=== PATIENT | male | born 1960 | race Caucasian/White ===

== ENCOUNTER 2018-01-15 00:21 | Inpatient (IN) | payer OTHER ==
--- NOTE | 2018-01-15 00:56 | ED ---
HPI Cardiac - HPI Summary HPI Summary: This patient is a 57 year old M transferred from [facility] with a chief complaint of intermittent CP since this evening at 20:30. There is a noted NSTEMI. Pt states his pain is resolved in the ED. Patient denies SOB, dizziness, nausea, or vomiting. The patient was watching the news when he had the CP. He had been hunting earlier in the day. Pt states that his pain was relieved after taking one metoprolol at home. PMHX muscle spasms in his back. No PMHx angina, [place]. SHX tobacco use. - History of Current Complaint Chief Complaint: EDChestPainROMI Stated Complaint: CHEST PAIN Hx Obtained From: Patient Onset/Duration: Started Hours Ago - 20:30 Timing: Intermittent Initial Severity: Severe Current Severity: None Pain Intensity: 0 Associated Signs and Symptoms: Negative: Dizziness, Shortness of Breath, Nausea , Vomiting - Allergy/Home Medications Allergies/Adverse Reactions: Allergies Allergy/AdvReac Type Severity Reaction Status Date / Time No Known Allergies Allergy Verified 01/15/18 00:32 PMH/Surg Hx/FS Hx/Imm Hx Cardiovascular History: Denies: Hx Angina, Hx Myocardial Infarction Musculoskeletal History: Reports: Other Musculoskeletal History - muscle spasms in back EENT History: Denies: Hx Deafness Infectious Disease History: No Infectious Disease History: Denies: Traveled Outside the [place] in Last 30 Days - Family History Known Family History: Positive: Cardiac Disease - Social History Alcohol Use: None Substance Use Type: Reports: None Hx Tobacco Use: Yes Smoking Status (MU): Light Every Day Tobacco Smoker Review of Systems Negative: Other - dizzy Positive: Chest Pain - resolved Negative: Shortness Of Breath Negative: Vomiting, Nausea All Other Systems Reviewed And Are Negative: Yes Physical Exam - Summary Physical Exam Summary: Appearance: Well-appearing, Well-nourished, lying in bed comfortably Skin: Warm, dry, no obvious rash Eyes: sclera anicteric, no conjunctival pallor ENT: mucous membranes moist, pharynx appears normal Neck: Supple, nontender Respiratory: Clear to auscultation, no signs of respiratory distress Cardiovascular: Normal S1, S2. No murmurs. Normal distal pulses in tibial and radial bilaterally. Abdomen: Soft, nontender, normal active bowel sounds present Musculoskeletal: Normal, Strength/ROM Intact Neurological: A&Ox3, awake and alert, mentation is normal, speech is fluent and appropriate Psychiatric: affect is normal, does not appear anxious or depressed Triage Information Reviewed: Yes Vital Signs On Initial Exam: Initial Vitals Temp Pulse Resp BP Pulse Ox 98.8 F 62 15 137/80 96 01/15/18 00:26 01/15/18 00:26 01/15/18 00:26 01/15/18 00:26 01/15/18 00:26 Vital Signs Reviewed: Yes Diagnostics - Vital Signs Vital Signs Temp Pulse Resp BP Pulse Ox 01/15/18 00:26 98.8 F 62 15 137/80 96 - Laboratory Result Diagrams: 01/15/18 01:11 01/15/18 03:09 Lab Statement: Any lab studies that have been ordered have been reviewed, and results considered in the medical decision making process. - EKG 00:59 Cardiac Rate: Bradycardia - 55 bpm EKG Rhythm: Sinus Bradycardia Summary of EKG Findings: Sinus bradycardia at 51 BPM, P waves, QRS complex, and T waves are within normal limits, T waves and intervals are normal, no ischemic changes. Disposition - Course Course Of Treatment: This patient is a 57 year old M transferred from [facility] with a chief complaint of intermittent CP since this evening at 20:30. There is a noted NSTEMI. Pt states his pain is resolved in the ED. Patient denies SOB, dizziness, nausea, or vomiting. An EKG reveals Sinus bradycardia at 51 BPM, P waves, QRS complex, and T waves are within normal limits, T waves and intervals are normal, no ischemic changes. This is a normal EKG. ED physician has reviewed this radiology report. In the ED course the patient was given Heparin. We discussed patient care with Dr. Holley and they recommended admission. Patient will be admitted to [facility]. The patient is agreeable with this plan. - Diagnoses Provider Diagnoses: ACS (acute coronary syndrome) - Physician Notifications Discussed Care Of Patient With: Danae Holley Time Discussed With Above Provider: 01:01 Instructed by Provider To: Admit As Inpatient Discharge - Sign-Out/Discharge Documenting (check all that apply): Patient Departure - admit - Discharge Plan Condition: Stable Disposition: ADMITTED TO [facility] - Billing Disposition and Condition Condition: STABLE Disposition: Admitted to [facility] - Attestation Statements Document Initiated by Scribe: Yes Documenting Scribe: Kevin Guajardo Provider For Whom Scribe is Documenting (Include Credential): Mick Pineda MD Scribe Attestation: I, Kevin Guajardo, scribed for Mick Pineda MD on 01/15/18 at 0352. Scribe Documentation Reviewed: Yes Provider Attestation: The documentation as recorded by the scribe, Kevin Guajardo accurately reflects the service I personally performed and the decisions made by me, Mick Pineda MD Status of Scribe Document: Viewed
[2018-01-15] MEDS ORDERED: Heparin DRIP 25,000 UNITS(*) 25,000 UNITS/500 ML BAG IV SCH ×6 (01:00→03:00)
[2018-01-15] MEDS ORDERED: Heparin VIAL(*) 5000 UNITS/ML VIAL (FIVE THOUSAND) IV PRN (01:36)
[2018-01-15] MEDS ORDERED: Al Hydrox/Mg Hydrox/Simet LIQ* 30 ML UDC PO PRN (02:13)
[2018-01-15] MEDS ORDERED: Ondansetron INJ* 2 MG/ML VIAL IV PRN (02:13)
[2018-01-15] MEDS ORDERED: Acetaminophen TAB* 325 MG PO PRN (02:13)
[2018-01-15] MEDS ORDERED: Docusate CAP* 100 MG PO PRN (02:13)
[2018-01-15] MEDS ORDERED: Senna TAB PO PRN (02:13)
[2018-01-15] MEDS ORDERED: Diazepam TAB(*) 5 MG PO PRN ×2 (02:18→12:19)
[2018-01-15] MEDS ORDERED: Heparin DRIP 25,000 UNITS(*) 25,000 UNITS/500 ML BAG IV ONE ×2 (03:00)
--- NOTE | 2018-01-15 03:02 | PN ---
Progress Note - Progress Note Date of Service: 01/15/18 Note: HCP is Brendon Kumar his friend
[2018-01-15 03:08] LABS: ABS Basophils 0.1 10^3/ul (0-0.2); ABS Eosinophils 0.4 10^3/ul (0-0.6); ABS Lymphocytes 2.3 10^3/ul (1.0-4.8); ABS Monocytes 0.4 10^3/ul (0-0.8); ABS Neutrophils 5.5 10^3/ul (1.5-7.7); ABS Nucleated RBC 0 10^3/ul; Eosinophil % 4.5 %; Hematocrit 47 % (42-52); Hemoglobin 16.2 g/dl (14.0-18.0); Lymphocyte % 26.5 %; Mean Corpuscular HGB Conc 35 g/dl (31-36); Mean Corpuscular Hemoglobin 30 pg (27-31); Mean Corpuscular Volume 86 fL (80-94); Nucleated Red Blood Cells % 0; Platelet Count 299 10^3/ul (150-450); Red Blood Count 5.44 10^6/ul (4.00-5.40); Red Cell Distribution Width 14 % (10.5-15); White Blood Count 8.7 10^3/ul (3.5-10.8)
[2018-01-15] MEDS: oxyCODONE/Acetamin 5/325 MG* TAB PO PRN ×3 (04:06→20:46)
--- NOTE | 2018-01-15 08:49 | HP ---
CC: Darrius Rodriguez DO * HISTORY AND PHYSICAL: DATE OF ADMISSION: 01/15/18 TIME OF EVALUATION: 0200 PRIMARY CARE PHYSICIAN: Darrius Rodriguez DO CHIEF COMPLAINT: Chest pain. HISTORY OF PRESENT ILLNESS: This is a 57-year-old male with past medical history of tobacco use, rapid cardiac rhythm, presumed to be atrial fibrillation , who presented to the emergency room from [place] [facility] after found to have an elevated troponin. The patient states he was out hunting this morning and this evening around 8:30, he was on a couch when he developed substernal chest pain and shoulder pain. He initially thought it was a spasm and related to his back as he has a lot of back pain. He was out hunting earlier, so he took a Percocet with no improvement and he also noted his heart was racing. He took a metoprolol dose, which slowed it down, but thought he should go to the emergency room. By the time, he showed up to the emergency room, his chest pain and heart racing had resolved. He had no associated shortness of breath. No diaphoresis. No nausea. He is no longer having any chest pain. He states he was having issues with his heart racing about 8 months ago. He thinks it was atrial fibrillation. They tried to put him on metoprolol, but he was having issues with a low heart rate, so his doctor told him to only take it as needed when he had palpitations and he has not needed it since that episode and at that time, he was drinking 20 pots of coffee a day and 24 pack of soda. He cut back significantly but over gi, he increased his caffeine intake and is now back up to about 15 pots of coffee and 24 cans of soda per day. He states he just had a stress test 3 weeks ago done at [place] and he was told it was fine and his pull out operator, who he cannot recall, increased his simvastatin to 80 mg. The patient denied any fevers, chills. No URI symptoms. He has had issues with worsening back pain. Otherwise, review of systems is negative. In the emergency room, the patient had labs, imaging, and was referred to the hospitalist service for further evaluation. PAST MEDICAL HISTORY: 1. History of rapid rhythm, presumed to be atrial fibrillation. 2. Tobacco use. 3. Hyperlipidemia. 4. Back pain. 5. Arthritis. PAST SURGICAL HISTORY: Appendectomy. MEDICATIONS: 1. Percocet 5/325 every 4 to 6 hours as needed. 2. Diazepam 5 mg t.i.d. p.r.n. back spasm. 3. Simvastatin 80 mg p.o. daily. 4. Metoprolol succinate 25 mg as needed for rapid heart rate. 5. Ibuprofen as needed. ALLERGIES: No known drug allergies. FAMILY HISTORY: Mother is alive at age 86. Father at age 65 from an [facility]. SOCIAL HISTORY: The patient is a retired [employer]. He smokes a half a pack per day for the past 40 years. No alcohol or illicit drug use. Code status is full code. REVIEW OF SYSTEMS: A 14-point review of systems as mentioned in the HPI, otherwise negative. PHYSICAL EXAMINATION GENERAL: In no acute distress, resting comfortably. VITAL SIGNS: Temp 98.8, pulse 61, respiratory rate 17, oxygen saturation 97% on room air, blood pressure 150/94. HEENT: Head: Normocephalic. Pupils are equal and reactive. Oropharynx: Mucous membranes are moist. NECK: Supple. No lymphadenopathy. RESPIRATORY: Diminished breath sounds. No wheezing, rhonchi, or rales. CARDIAC: Regular rate and rhythm. Soft systolic murmur heard throughout. ABDOMEN: Soft, nontender, nondistended. EXTREMITIES: He does have lower extremity and upper extremity clubbing. No cyanosis or edema. +1 DPs. NEUROLOGICAL: Alert and oriented x3. No gross focal neurologic deficits. DIAGNOSTIC STUDIES/LAB DATA: Troponin is 2.4; from [place], it was 0.14. White count 7.5, hemoglobin 16.8, hematocrit 47, platelets 289. Sodium 139, potassium 3.5, chloride 101, bicarb 27, BUN 11, creatinine 0.9. EKG shows sinus bradycardia with a rate of 55. ASSESSMENT AND PLAN: This is a 57-year-old male with past medical history of significant caffeine use, tobacco use, who presents to the emergency room with chest pain, found to have an elevated troponin. Chest pain. Assessment: The patient with a rise in troponin. He is chest pain-free currently. I suspect this is demand ischemia in the setting of having a bout of rapid atrial fibrillation, presumably earlier this evening, as he did just have a stress test 3 weeks ago that was, according to the patient, unremarkable. However due to the significance of the rise of troponin it could also be an NSTEMI. Plan: We will keep him n.p.o. for now in case Cardiology is recommending further workup. We will order records to get the stress test. We will order an echocardiogram. I will contact Cardiology in the morning for further consultation. We will continue him on a baby aspirin, heparin drip, trend his troponins, check his lipid panel. We will hold off on beta-kelly as he states he does not tolerate this and due to developing significant bradycardia, we discussed likely the culprit is the increasing caffeine intake that has triggered his rapid atrial fibrillation. We will also repeat his BMP and magnesium. CHRONIC MEDICAL PROBLEMS: 1. Chronic back pain. Continue his Percocet and diazepam. 2. Hyperlipidemia. Continue his simvastatin. FEN: As mentioned, we will keep him n.p.o. for now. DVT prophylaxis: The patient scores moderate risk. He is on heparin drip. Code status: Full code. TIME SPENT: Greater than 40 minutes were spent doing the history and physical, more than half time was spent in direct patient contact. [id number]/[id number] #: [id number] KENNETH
--- NOTE | 2018-01-15 09:32 | ECHO ---
Patient: BAKARI DREW [facility] Rec#: [id number] : 1960 Date: 01/15/2018 Age: 57y Height: 170 cm / 66.9 in Weight: 76.7 kg / 169.0 lbs Sex: M BSA: 1.9 Room#: [facility] Admit Date#: 01/14/2018 Type: Inpatient Referring: Danae Holley Reading: Erwin Romeo DO Medical Doctor Md: Ammy Izquierdo RN RDCS Transthoracic Echocardiogram Indication: Chest pain BP: 128/78 HR: 52 Rhythm: Bradycardia Findings History: Smoker Technical Comments: The study quality is fair. Left Ventricle: The left ventricular chamber size is normal. There is a prominent septal knuckle. There is a focal wall motion abnormality present. There is moderately decreased left ventricular systolic function. The estimated ejection fraction is 35-40%. The assessment of diastolic function is non-diagnostic. The basal anteroseptal, mid inferior, mid inferoseptal, and apical lateral wall segments are hypokinetic (score 2). The mid anteroseptal, apical septal, apical anterior, and apical inferior wall segments are akinetic (score 3). Overall wallmotion score index is 1.92 Left Atrium: The left atrium is mildly dilated. Right Ventricle: The right ventricular chamber size and systolic function are within normal limits. Right Atrium: The right atrial cavity size is normal. Aortic Valve: The aortic valve is trileaflet. The aortic valve leaflets are moderately thickened. Mild aortic leaflet calcification is visualized., mild to moderate Systolic excursion of the aortic valve cusps is reduced.mildly There is mild aortic regurgitation. There is mild aortic stenosis. Mitral Valve: The mitral valve leaflets are mildly thickened. There is trace to mild mitral regurgitation. There is no evidence of mitral stenosis. Tricuspid Valve: The tricuspid valve leaflets are normal. There is mild tricuspid regurgitation. No pulmonary hypertension is noted. There is no tricuspid stenosis. Pulmonic Valve: The pulmonic valve structure is not well visualized. There is trace to mild pulmonic regurgitation. There is no pulmonic stenosis. Pericardium: There is no significant pericardial effusion. Aorta: The ascending aorta is not well visualized. There is no dilatation of the aortic arch. There is no dilation of the aortic root. Pulmonary Artery: The main pulmonary artery is not well visualized. Venous: The inferior vena cava appears normal in size. There is a greater than 50% respiratory change in the inferior vena cava dimension. Conclusions The left ventricular chamber size is normal. There is a prominent septal knuckle. There is moderately decreased left ventricular systolic function. The estimated ejection fraction is 35-40% with a mid LAD territory wall motion abnormality The left atrium is mildly dilated. The right ventricular chamber size and systolic function are within normal limits. There is mild aortic stenosis. None prior for comparison at time of interpretation Measurements Name Value Normal Range RVDdMajor (2D) 3.3 cm (2.2 - 4.4) RAd ISD 4CH 4.8 cm (3.4 - 4.9) RA (A4C)W 4 cm (2.9 - 4.6) IVSd (2D) 1.2 cm (0.6 - 1) LVPWd (2D) 1 cm (0.6 - 1) LVIDd (2D) 4.4 cm (3.6 - 5.4) LVIDs (2D) 3.1 cm - LV FS (2D) 30 % (25 - 45) Aortic Annulus 2 cm (1.4 - 2.6) Ao root diameter (2D) 3.2 cm (2.1 - 3.5) Aortic arch 2.8 cm (1.8 - 3.4) LA dimension (AP) 2D 2.7 cm (2.3 - 3.8) LAd ISD 4CH 5 cm (2.9 - 5.3) LA ISD 4CH W 4 cm (2.5 - 4.5) Name Value Normal Range LA ESV SP 4CH (A/L) 71 ml - LA ESV SP 2CH (A/L) 59 ml - LA ESV BP (A/L) 69 ml - LA ESV BP (A/L) index 37.4 ml/m2 - LA ESV SP 4CH (MOD) 68 ml - LA ESV SP 2CH (MOD) 56 ml - Name Value Normal Range MV E-wave Vmax 0.63 m/sec - MV deceleration time 222 msec - MV A-wave Vmax 0.55 m/sec - MV E:A ratio 1.1 ratio - LV septal e' Vmax 0.08 m/sec - LV lateral e' Vmax 0.09 m/sec - LV E:e' septal ratio 7.9 ratio - LV E:e' lateral ratio 7 ratio - Name Value Normal Range AV Vmax 2.3 m/sec - AV VTI 55.4 cm - AV peak gradient 20.6 mmHg - AV mean gradient 12 mmHg - LVOT diameter 2.1 cm - LVOT Vmax 0.84 m/sec - LVOT VTI 20.8 cm - LVOT peak gradient 3 mmHg - LVOT mean gradient 2 mmHg - DOI (VTI) 0.38 ratio - DOI (Vmax) 0.37 ratio - GREGORIO Vmax 0.88 m/sec - Name Value Normal Range TR Vmax 2.7 m/sec - TR peak gradient 29 mmHg - RAP 3 mmHg - RVSP 32 mmHg - IVC diameter 1.7 cm - Name Value Normal Range PV Vmax 0.67 m/sec - Wallmotion BAS Hypokinetic BA Not Seen BAL Normal ISAEL Normal BI Not Seen BIS Normal MAS Akinetic MA Not Seen MAL Normal MIL Normal UT Hypokinetic MIS Hypokinetic Akinetic AA Akinetic AL Hypokinetic AI Akinetic APEX Akinetic
[2018-01-15] MEDS: Aspirin 81 mg CHEW TAB* 81 MG TAB.CHEW PO SCH (09:40)
[2018-01-15] MEDS ORDERED: Ticagrelor* 90 MG TAB PO ONE (10:13)
--- NOTE | 2018-01-15 10:32 | CONSULT ---
Subjective Date of Service: 01/15/18 Interval History: Admission Date: 01/15/18 Consult date 01/15/2018 PCP Darrius Rodriguez DO Grinding Supervisor: Dr. Jacobson at [place] (had several prior cardiologists to this that left practice) CHIEF COMPLAINT: Chest pain Reason for consult: NSTEMI HISTORY OF PRESENT ILLNESS: Jass Cunningham is a 57 year old man with a history of palpitations/arrhythmia (? atrial fibrillation) with PRN beta-kelly use. He was told this is related to extremely high caffeine intake. He was told at some point in the past he would be a pacemaker candidate although the indication for this is not clear. He tells me he had a normal stress test a year ago. He recently had his simvastatin dose increased from 40 to 80 mg po daily. Last evening he had about an hour of substernal chest squeezing that radiated to shoulders and upper back associated with palpitations. He tried PRN medication percocet and metoprolol but it did not relieve his discomfort. By the time he went to [place] ER his pain suddenly stopped and has remained without pain. He ruled in for ACS with abnormal troponin levels and a segmental WMA on echocardiogram. He is currently pain free. He denies any bleeding history, blood transfusions , allergies or kidney problems. His fiance takes plavix terminal computer operator. Of note, had been drinking 20 pots of coffee a day and 24 pack of soda. He reduced this because of palpitations but recently increased his caffeine intake and is now back up to about 15 pots of coffee and 24 cans of soda per day. PAST MEDICAL HISTORY: 1. Palpitations, ? atrial fibrillation 2. Tobacco use, ongoing 3. Hyperlipidemia. 4. Back pain. 5. Arthritis. PAST SURGICAL HISTORY: Appendectomy. ALLERGIES: No known drug allergies. FAMILY HISTORY: Mother is alive at age 86. Father at age 65 from an ID. SOCIAL HISTORY: The patient is a retired [employer]. He smokes a half a pack per day for the past 40 years. No alcohol or illicit drug use. Code status is full code. , 2 children. Is engaged. Home medications 1. Percocet 5/325 every 4 to 6 hours as needed. 2. Diazepam 5 mg t.i.d. p.r.n. back spasm. 3. Simvastatin 80 mg p.o. daily. 4. Metoprolol succinate 25 mg as needed for rapid heart rate. 5. Ibuprofen as needed. Medications Active Medications: Acetaminophen (Tylenol Tab*) 650 mg PO Q4H PRN PRN Reason: FEVER/PAIN Al Hydrox/Mg Hydrox/Simethicone (Maalox Plus*) 30 ml PO Q6H PRN PRN Reason: INDIGESTION Aspirin (Aspirin 81 Mg Chew Tab*) 81 mg PO DAILY [facility] Last Admin: 01/15/18 09:40 Dose: 81 mg Atorvastatin Calcium (Lipitor*) 80 mg PO 1700 [facility] Diazepam (Valium Tab(*)) 5 mg PO Q8H PRN PRN Reason: spasm Docusate Sodium (Colace Cap*) 100 mg PO BID PRN PRN Reason: CONSTIPATION Heparin Sodium (Porcine) (Heparin Vial(*)) 0 units IV .BOLUSES PRN PRN Reason: HEPARIN DRIP BOLUSES Heparin Sodium/Dextrose (Heparin Drip 25,000 Units(*)) 25,000 units in 500 mls @ 0 mls/hr IV PER RATE [facility]; Protocol Last Admin: 01/15/18 04:08 Dose: 18 mls/hr Ondansetron HCl (Zofran Inj*) 4 mg IV Q4H PRN PRN Reason: NAUSEA/VOMITING Oxycodone/Acetaminophen (Percocet 5/325 Tab*) 1 tab PO Q4H PRN PRN Reason: Pain Last Admin: 01/15/18 04:06 Dose: 1 tab Senna (Senokot Tab*) 1 tab PO BID PRN PRN Reason: CONSTIPATION Ticagrelor (Brilinta*) 180 mg PO ONCE ONE Stop: 01/15/18 10:14 Ticagrelor (Brilinta*) 90 mg PO BID [facility] Review of Systems - Measurements Intake and Output: Intake and Output Last 24 Hours 01/13/18 01/14/18 01/15/18 01/16/18 06:59 06:59 06:59 06:59 Intake Total 105 0 Balance 105 0 Weight 163 lb 6.4 oz Intake: Heparin 105 Oral 0 0 Other: # Bowel Movements 0 # Voids 0 - Review of Systems Constitutional Symptoms: Negative: Weight Gain, Weight Loss, Fatigue, Fever Dermatology: Negative: Rash, Skin Lesions HEENT: Negative: Change in Hearing, Vertigo Eyes: Negative: Change in Vision, Double Vision Thyroid: Positive: Palpitations Negative: Cold Intolerance, Heat Intolerance, Weight Loss, Weight Gain Pulmonary: Negative: Sputum, Hemoptysis, Shortness of Breath, Exercise Intolerance, Home Oxygen Cardiology: Positive: Chest Pain, Palpitations Negative: Shortness of Breath, Swelling of Ankles, Peripheral Vascular Dis, Edema, Faintness, Syncope, Claudication, Paroxysmal Nocturnal Dyspnea, Orthopnea Gastroenterology: Negative: Nausea, Vomiting, Anorexia, Blood in Stools, Change in Bowel Habits , Haematemesis, Melena Genital - Urinary: Negative: Dysuria, Hematuria Musculoskeletal: Negative: Joint Pain, Joint Stiffness, Osteoporosis, Low Back Pain Endocrinology: Negative: Obesity, Diabetes, Hyperglycemia, Hypoglycemia, Polydipsia, Polyuria Hematologic/Lymphatic: Negative: Anemia, Hx Leukemia, Hx Lymphoma, Use of Anticoagulant, Use of Antiplatelet Drugs Neurology: Negative: Headaches, Migraines, Diplopia, Dizziness, Hx of Stroke\TIA, Hx Seizures Psychiatry: Negative: Depression, Anxiety, Sexual Dysfunction, Weight Change, Unusual Anxiety, Suicidal Ideation Allergic/Immunologic: Negative: Hx Anaphylaxis, Hx Angioedema, Hx HIV, Immunocompromise Review of Systems Statement: All other review of systems negative, unless stated above. Objective Vital Signs: Temp Pulse Resp BP Pulse Ox 97.7 F 51 18 128/78 97 01/15/18 07:57 01/15/18 07:57 01/15/18 08:00 01/15/18 07:57 01/15/18 07:57 Oxygen Devices in Use Now: None Appearance: nad, pleasant Ears/Nose/Mouth/Throat: Clear Oropharnyx, Mucous Membranes Moist Neck: NL Appearance and Movements; NL JVP Respiratory: Symmetrical Chest Expansion and Respiratory Effort, Clear to Auscultation Cardiovascular: RRR, - - soft systolic murmur, no edema Abdominal: NL Sounds; No Tenderness; No Distention Extremities: No Edema, No Clubbing, Cyanosis Skin: No Rash or Ulcers Neurological: Alert and Oriented x 3 Laboratory Results: 01/15/18 01:11 01/15/18 03:09 APTT 61.7 seconds (26.0-36.3) H 01/15/18 05:19 B-Natriuretic Peptide 46 pg/mL (<=100) 01/15/18 01:11 Triglycerides 173 mg/dL 01/15/18 05:19 Cholesterol 259 mg/dL 01/15/18 05:19 LDL Cholesterol 183 mg/dL 01/15/18 05:19 HDL Cholesterol 41.5 mg/dL 01/15/18 05:19 TSH 1.11 mcIU/mL (0.34-5.60) 01/15/18 01:11 01/15/18 01/15/18 01/15/18 01:11 05:19 09:30 Troponin I 2.40 H* 4.55 H* 4.51 H* DIAGNOSTIC STUDIES/LAB DATA: [place] troponin 0.14. mg 2.2 cr 0.71 Diagnostic Imaging: Echo 01/15/2018: LVEF 35% with mid LAD territory WMA and mild EKG Data: EKG 01/15/2018: SB 55 bpm, non-specific st changes, repeat ekg grossly unchanged at 49 bpm Assessment/Plan In summary, Jass Cunningham is 57 year old woman with a history of intermittent palpitations (? atrial fibrillation) in part related to extremely high caffeine intake, tobacco use ongoing who presents with an acute ID, LVEF 35-40% with mid LAD territory WMA. - Agree with changing simvastatin to atorvastatin. Pending repeat LDL measurements as an outpatient, patient would be eligible for add-on zetia and/ or pcsk9 inhibitor - Will hold on beta-kelly for now given asymptomatic sinus bradycardia but likely start prior to discharge low dose toprol 12.5 mg po daily - Will start AceI soon - Continue aspirin 81 mg po daily - Continue heparin gtt - Give brillinta 180 mg po x 1 now then start 90 mg po bid (ordered) - Smoking cessation counseling given, patient expressed understanding further smoking will lead to increased risks of things including but not limited to . - Caffeine reduction counseled on At this point I am not sure if this is a type 1 ID vs. type 2 ID related to a primary arrhythmia. Regardless, cardiac catheterization with intent for revascularization is indicated and recommended. Risks, benefits and alternatives discussed and patient wishes to proceed. Discussed with Dr. Preciado. Thank you for allowing me to participate in the cardiovascular care of this patient. Please do not hesitate to contact me with questions or concerns.
[2018-01-15] MEDS ORDERED: diPHENhydraMINE PO* 25 MG PO PRN (12:19)
[2018-01-15] MEDS ORDERED: NS 0.9% 1000 ML* 1,000 ML IV SCH ×2 (12:30→16:45)
[2018-01-15] MEDS ORDERED: Heparin 2 UNITS/ML IVPREMIX* 3,000 ML IV ONE (14:03)
[2018-01-15] MEDS ORDERED: VERAPAMIL 2.5 MG/ML 2 ML VIAL ** 5 mg/2 ml ONE (14:03)
[2018-01-15] MEDS ORDERED: Heparin(*) 1000 UNIT/ML 10 ML VIAL CATH LAB IV ONE (14:03)
[2018-01-15] MEDS ORDERED: fentaNYL* 50 MCG/ML 2 ML VIAL (100 MCG VIAL) ONE (14:03)
[2018-01-15] MEDS ORDERED: Midazolam* 1 MG/ML 10 ML VIAL (10 MG) ONE (14:03)
[2018-01-15] MEDS ORDERED: Lidocaine 1% INJ* 10 MG/ML 30 ML SDV ONE (14:04)
[2018-01-15] MEDS ORDERED: Iohexol 350 (CONTRAST) 200 ML MDV IV ONE ×3 (14:04→15:50)
[2018-01-15] MEDS ORDERED: nitroGLYCERIN DRIP* 25,000 MCG/250 ML BTL ONE (14:04)
[2018-01-15] MEDS ORDERED: Nitroglycerin TAB 0.4 MG* 0.4 MG TAB SL PRN (16:31)
[2018-01-15] MEDS: Atorvastatin* 80 MG TAB PO SCH (17:02)
--- NOTE | 2018-01-15 17:35 | PN ---
Subjective Date of Service: 01/15/18 Interval History: Mr. Cunningham denies any complaint today. He denies chest pain or SOB. Objective Active Medications: Acetaminophen (Tylenol Tab*) 650 mg PO Q4H PRN PRN Reason: FEVER/PAIN Al Hydrox/Mg Hydrox/Simethicone (Maalox Plus*) 30 ml PO Q6H PRN PRN Reason: INDIGESTION Aspirin (Aspirin 81 Mg Chew Tab*) 81 mg PO DAILY [facility] Last Admin: 01/15/18 09:40 Dose: 81 mg Atorvastatin Calcium (Lipitor*) 80 mg PO 1700 [facility] Last Admin: 01/15/18 17:02 Dose: 80 mg Diazepam (Valium Tab(*)) 5 mg PO Q8H PRN PRN Reason: spasm Docusate Sodium (Colace Cap*) 100 mg PO BID PRN PRN Reason: CONSTIPATION Sodium Chloride (Ns 0.9% 1000 Ml*) 1,000 mls @ 100 mls/hr IV .per rate [facility] Stop: 01/16/18 06:00 Nitroglycerin (Nitroglycerin Tab 0.4 Mg*) 0.4 mg SL Q5M PRN PRN Reason: ANGINA Ondansetron HCl (Zofran Inj*) 4 mg IV Q4H PRN PRN Reason: NAUSEA/VOMITING Oxycodone/Acetaminophen (Percocet 5/325 Tab*) 1 tab PO Q4H PRN PRN Reason: Pain Last Admin: 01/15/18 17:02 Dose: 1 tab Senna (Senokot Tab*) 1 tab PO BID PRN PRN Reason: CONSTIPATION Ticagrelor (Brilinta*) 90 mg PO BID [facility] Vital Signs - 8 hr 01/15/18 01/15/18 01/15/18 14:09 16:30 16:31 Temperature Pulse Rate 53 48 Respiratory 20 19 13 Rate Blood Pressure 149/88 (mmHg) O2 Sat by Pulse 100 100 Oximetry 01/15/18 01/15/18 01/15/18 16:32 16:42 16:45 Temperature 97.5 F Pulse Rate 64 57 Respiratory 24 18 18 Rate Blood Pressure 149/88 157/95 (mmHg) O2 Sat by Pulse 99 100 Oximetry 01/15/18 01/15/18 01/15/18 16:57 17:00 17:01 Temperature Pulse Rate 63 53 Respiratory 15 18 24 Rate Blood Pressure 143/95 (mmHg) O2 Sat by Pulse 99 99 Oximetry 01/15/18 17:02 Temperature Pulse Rate Respiratory 16 Rate Blood Pressure (mmHg) O2 Sat by Pulse Oximetry Oxygen Devices in Use Now: None Appearance: male lying in bed in NAD Eyes: No Scleral Icterus Ears/Nose/Mouth/Throat: Mucous Membranes Moist Neck: Trachea Midline Respiratory: Symmetrical Chest Expansion and Respiratory Effort, Clear to Auscultation Cardiovascular: NL Sounds; No Murmurs; No JVD, No Edema Abdominal: NL Sounds; No Tenderness; No Distention Extremities: No Edema Skin: No Rash or Ulcers Neurological: Alert and Oriented x 3, NL Muscle Strength and Tone Nutrition: Taking PO's Result Diagrams: 01/15/18 01:11 01/15/18 03:09 Assess/Plan/Problems-Billing Assessment: Mr. Cunningham is a 57 yo male who was admitted on 01/14/18 with chest pain found to have NSTEMI, now s/p stent placement. - Patient Problems (1) NSTEMI (non-ST elevated myocardial infarction) Comment: - Trop peaked at 4.55 - Appreciate cards consult, now s/p cardiac cath with stent placement - Continue aspirin, atorvastatin, and brilinta (2) DVT prophylaxis Comment: - SCDs (3) Full code status Comment:
[2018-01-15] MEDS ORDERED: Metoprolol Tartrate IV* 1 MG/ML 5 ML VIAL ONE (17:53)
[2018-01-15] MEDS: Ticagrelor* 90 MG TAB PO SCH (20:47)
[2018-01-16 05:00] LABS: ABS Basophils 0.1 10^3/ul (0-0.2); ABS Eosinophils 0.4 10^3/ul (0-0.6); ABS Lymphocytes 2.1 10^3/ul (1.0-4.8); ABS Monocytes 0.9 10^3/ul (0-0.8); ABS Neutrophils 7.2 10^3/ul (1.5-7.7); ABS Nucleated RBC 0 10^3/ul; Eosinophil % 3.4 %; Hematocrit 44 % (42-52); Hemoglobin 15.2 g/dl (14.0-18.0); Lymphocyte % 19.5 %; Mean Corpuscular HGB Conc 34 g/dl (31-36); Mean Corpuscular Hemoglobin 30 pg (27-31); Mean Corpuscular Volume 86 fL (80-94); Mean Platelet Volume 8.2 fL (7.4-10.4); Nucleated Red Blood Cells % 0; Platelet Count 247 10^3/ul (150-450); Red Blood Count 5.14 10^6/ul (4.00-5.40); Red Cell Distribution Width 14 % (10.5-15); White Blood Count 10.7 10^3/ul (3.5-10.8)
[2018-01-16 05:18] LABS: EGFR Non-African American 115.8 (>60)
[2018-01-16] MEDS: Aspirin 81 mg CHEW TAB* 81 MG TAB.CHEW PO SCH (07:52)
[2018-01-16] MEDS: Ticagrelor* 90 MG TAB PO SCH ×2 (07:52→20:15)
[2018-01-16] MEDS ORDERED: Potassium Chlor TAB* 20 MEQ TAB.ER PO ONE (09:00)
[2018-01-16] MEDS: Nicotine PATCH 14 MG/24 HR* PATCH TRANSDERM SCH (09:17)
--- NOTE | 2018-01-16 09:22 | PN ---
Subjective Date of Service: 01/16/18 Interval History: f/u NSTEMI, PCI Patient feels well this AM, eating breakfast No wrist pain, chest pain, dyspnea or palpitations tele SB/SR, brief nsvt episodes Medications Active Medications: Acetaminophen (Tylenol Tab*) 650 mg PO Q4H PRN PRN Reason: FEVER/PAIN Al Hydrox/Mg Hydrox/Simethicone (Maalox Plus*) 30 ml PO Q6H PRN PRN Reason: INDIGESTION Aspirin (Aspirin 81 Mg Chew Tab*) 81 mg PO DAILY [facility] Last Admin: 01/16/18 07:52 Dose: 81 mg Atorvastatin Calcium (Lipitor*) 80 mg PO 1700 [facility] Last Admin: 01/15/18 17:02 Dose: 80 mg Diazepam (Valium Tab(*)) 5 mg PO Q8H PRN PRN Reason: spasm Docusate Sodium (Colace Cap*) 100 mg PO BID PRN PRN Reason: CONSTIPATION Losartan Potassium (Cozaar Tab*) 25 mg PO DAILY [facility] Metoprolol Succinate (Toprol Xl Tab*) 12.5 mg PO DAILY [facility] Nicotine (Nicotine Patch 14 Mg/24 Hr*) 1 patch TRANSDERM DAILY [facility] Nitroglycerin (Nitroglycerin Tab 0.4 Mg*) 0.4 mg SL Q5M PRN PRN Reason: ANGINA Ondansetron HCl (Zofran Inj*) 4 mg IV Q4H PRN PRN Reason: NAUSEA/VOMITING Oxycodone/Acetaminophen (Percocet 5/325 Tab*) 1 tab PO Q4H PRN PRN Reason: Pain Last Admin: 01/15/18 20:46 Dose: 1 tab Pharmacy Profile Note (Nicotine Patch Removal Note*) 1 note FOLLOW UP 2100 [facility] Senna (Senokot Tab*) 1 tab PO BID PRN PRN Reason: CONSTIPATION Ticagrelor (Brilinta*) 90 mg PO BID [facility] Last Admin: 01/16/18 07:52 Dose: 90 mg Objective Vital Signs: Temp Pulse Resp BP Pulse Ox 98 F 52 18 137/71 98 01/16/18 07:58 01/16/18 08:01 01/16/18 08:01 01/16/18 08:00 01/16/18 08:01 Oxygen Devices in Use Now: None Appearance: nad, pleasant Ears/Nose/Mouth/Throat: Clear Oropharnyx, Mucous Membranes Moist Neck: NL Appearance and Movements; NL JVP Respiratory: Symmetrical Chest Expansion and Respiratory Effort, Clear to Auscultation Cardiovascular: RRR, - - soft systolic murmur, no edema Abdominal: NL Sounds; No Tenderness; No Distention Extremities: No Edema, No Clubbing, Cyanosis Skin: No Rash or Ulcers Neurological: Alert and Oriented x 3 Laboratory Results: 01/16/18 04:46 01/16/18 04:46 APTT 37.0 seconds (26.0-36.3) H 01/15/18 11:47 B-Natriuretic Peptide 46 pg/mL (<=100) 01/15/18 01:11 Triglycerides 173 mg/dL 01/15/18 05:19 Cholesterol 259 mg/dL 01/15/18 05:19 LDL Cholesterol 183 mg/dL 01/15/18 05:19 HDL Cholesterol 41.5 mg/dL 01/15/18 05:19 TSH 1.11 mcIU/mL (0.34-5.60) 01/15/18 01:11 01/15/18 01/15/18 01/15/18 01:11 05:19 09:30 Troponin I 2.40 H* 4.55 H* 4.51 H* 01/15/18 01/15/18 11:47 16:53 Troponin I 4.40 H* 4.37 H* Diagnostic Imaging: Echo 01/15/2018: LVEF 35% with mid LAD territory WMA and mild EKG Data: EKG 01/15/2018: SB 55 bpm, non-specific st changes, repeat ekg grossly unchanged at 49 bpm EKG this AM shows SB 53 bpm, recent anterior wall [place] Assessment/Plan In summary, Jass Cunningham is 57 year old woman with a history of intermittent palpitations (? atrial fibrillation) in part related to extremely high caffeine intake, asymptomatic sinus bradycardia, tobacco use ongoing, dyslipidemia admitted with NSTEMI, LVEF 35-40% with mid LAD territory WMA s/p ALEX to mid LAD culprit lesion complicated by loss of septal branch, s/p ALEX to mid dominant Lcx has residual obstructive small vessel disease to be treated medically at this point - Continue atorvastatin 80 mg po daily. Pending repeat LDL measurements as an outpatient, patient would be eligible for add-on zetia and/or pcsk9 inhibitor - Start toprol 12.5 mg po daily (ordered), hold for pulse < 40 bpm - Continue aspirin 81 mg po daily - Continue brillinta 90 mg po bid - Start losartan 25 mg po daily (ordered). Needs a BMP in 1 week - Smoking cessation counseling given, continue nicotine patch - Caffeine reduction counseled on - If no further arrhythmias can be transferred to telemetry later today - Will arrange cardiology follow up Thank you for allowing me to participate in the cardiovascular care of this patient. Please do not hesitate to contact me with questions or concerns.
[2018-01-16] MEDS: Metoprolol Succinate XL TAB* 25 MG PO SCH (09:58)
[2018-01-16] MEDS: Losartan TAB* 25 MG PO SCH (09:59)
[2018-01-16] MEDS ORDERED: Nicotine Inhaler* 10 MG AMP INH PRN (12:52)
[2018-01-16] MEDS ORDERED: Mouth Piece, Nicotine* 1 EACH CARTRIDGE INH PRN (12:56)
[2018-01-16] MEDS: oxyCODONE/Acetamin 5/325 MG* TAB PO PRN ×2 (14:25→20:16)
--- NOTE | 2018-01-16 16:24 | PN ---
Subjective Date of Service: 01/16/18 Interval History: Mr. Cunningham denies complaint today. He denies chest pain, SOB, nausea, or abdominal pain. Objective Active Medications: Acetaminophen (Tylenol Tab*) 650 mg PO Q4H PRN PRN Reason: FEVER/PAIN Last Admin: 01/16/18 14:25 Dose: 650 mg Al Hydrox/Mg Hydrox/Simethicone (Maalox Plus*) 30 ml PO Q6H PRN PRN Reason: INDIGESTION Aspirin (Aspirin 81 Mg Chew Tab*) 81 mg PO DAILY [facility] Last Admin: 01/16/18 07:52 Dose: 81 mg Atorvastatin Calcium (Lipitor*) 80 mg PO 1700 [facility] Last Admin: 01/15/18 17:02 Dose: 80 mg Device (Nicotine Mouth Piece*) 1 each INH .USE WITH NICOTROL PRN PRN Reason: CRAVING Diazepam (Valium Tab(*)) 5 mg PO Q8H PRN PRN Reason: spasm Docusate Sodium (Colace Cap*) 100 mg PO BID PRN PRN Reason: CONSTIPATION Losartan Potassium (Cozaar Tab*) 25 mg PO DAILY [facility] Last Admin: 01/16/18 09:59 Dose: 25 mg Metoprolol Succinate (Toprol Xl Tab*) 12.5 mg PO DAILY [facility] Last Admin: 01/16/18 09:58 Dose: 12.5 mg Nicotine (Nicotine Patch 14 Mg/24 Hr*) 1 patch TRANSDERM DAILY [facility] Last Admin: 01/16/18 09:17 Dose: 1 patch Nicotine (Nicotine Inhaler*) 10 mg INH Q2H PRN PRN Reason: CRAVING Nitroglycerin (Nitroglycerin Tab 0.4 Mg*) 0.4 mg SL Q5M PRN PRN Reason: ANGINA Ondansetron HCl (Zofran Inj*) 4 mg IV Q4H PRN PRN Reason: NAUSEA/VOMITING Oxycodone/Acetaminophen (Percocet 5/325 Tab*) 1 tab PO Q4H PRN PRN Reason: Pain Last Admin: 01/16/18 14:25 Dose: 1 tab Pharmacy Profile Note (Nicotine Patch Removal Note*) 1 note FOLLOW UP 2100 [facility] Senna (Senokot Tab*) 1 tab PO BID PRN PRN Reason: CONSTIPATION Ticagrelor (Brilinta*) 90 mg PO BID [facility] Last Admin: 01/16/18 07:52 Dose: 90 mg Vital Signs: Temp Pulse Resp BP Pulse Ox 97.6 F 71 16 137/86 97 01/16/18 13:20 01/16/18 13:00 01/16/18 14:25 01/16/18 10:03 01/16/18 13:00 Oxygen Devices in Use Now: None Appearance: Male sitting up in bed in NAD Eyes: No Scleral Icterus Ears/Nose/Mouth/Throat: Mucous Membranes Moist Neck: Trachea Midline Respiratory: Symmetrical Chest Expansion and Respiratory Effort, Clear to Auscultation Cardiovascular: NL Sounds; No Murmurs; No JVD, No Edema Abdominal: NL Sounds; No Tenderness; No Distention Extremities: No Edema Skin: No Rash or Ulcers Neurological: Alert and Oriented x 3, NL Muscle Strength and Tone Nutrition: Taking PO's Result Diagrams: 01/16/18 04:46 01/16/18 04:46 Assess/Plan/Problems-Billing Assessment: Mr. Cunningham is a 57 yo male who was admitted on 01/14/18 with chest pain found to have NSTEMI, now s/p stent placement. - Patient Problems (1) NSTEMI (non-ST elevated myocardial infarction) Comment: - Nnow s/p cardiac cath with stent placement to LAD and circ. Post cath arrhythmmia noted x 1 [address]. E[address] shows new ST changes in lateral leads, cards aware. - Continue aspirin, atorvastatin, and brilinta (2) Smoking Comment: - Nicotine replacement available prn (3) DVT prophylaxis Comment: - SCDs (4) Full code status Comment: Status and Disposition: Inpatient. Anticipate discharge to home when medically stable. Will need prolonged monitoring inpatient due to post-cath arrhythmia. Transfer to telemetry.
[2018-01-16] MEDS: Atorvastatin* 80 MG TAB PO SCH (17:01)
[2018-01-16] MEDS: Nicotine Patch Removal NOTE FOLLOW UP SCH (20:17)
[2018-01-17 05:47] LABS: EGFR Non-African American 115.8 (>60)
[2018-01-17] MEDS: Ticagrelor* 90 MG TAB PO SCH ×2 (08:03→19:56)
[2018-01-17] MEDS: Metoprolol Succinate XL TAB* 25 MG PO SCH (08:03)
[2018-01-17] MEDS: Losartan TAB* 25 MG PO SCH (08:03)
[2018-01-17] MEDS: Aspirin 81 mg CHEW TAB* 81 MG TAB.CHEW PO SCH (08:03)
[2018-01-17] MEDS: Nicotine PATCH 14 MG/24 HR* PATCH TRANSDERM SCH (08:04)
[2018-01-17] MEDS ORDERED: Metoprolol Succinate XL TAB* 25 MG PO ONE (08:29)
--- NOTE | 2018-01-17 08:34 | PN ---
Subjective Date of Service: 01/17/18 Interval History: f/u NSTEMI, PCI Patient denies chest pain, dyspnea or palpitations tele SB/SR, no arrhythmias Medications Active Medications: Acetaminophen (Tylenol Tab*) 650 mg PO Q4H PRN PRN Reason: FEVER/PAIN Last Admin: 01/16/18 14:25 Dose: 650 mg Al Hydrox/Mg Hydrox/Simethicone (Maalox Plus*) 30 ml PO Q6H PRN PRN Reason: INDIGESTION Aspirin (Aspirin 81 Mg Chew Tab*) 81 mg PO DAILY [facility] Last Admin: 01/17/18 08:03 Dose: 81 mg Atorvastatin Calcium (Lipitor*) 80 mg PO 1700 [facility] Last Admin: 01/16/18 17:01 Dose: 80 mg Device (Nicotine Mouth Piece*) 1 each INH .USE WITH NICOTROL PRN PRN Reason: CRAVING Diazepam (Valium Tab(*)) 5 mg PO Q8H PRN PRN Reason: spasm Docusate Sodium (Colace Cap*) 100 mg PO BID PRN PRN Reason: CONSTIPATION Losartan Potassium (Cozaar Tab*) 25 mg PO DAILY [facility] Last Admin: 01/17/18 08:03 Dose: 25 mg Metoprolol Succinate (Toprol Xl Tab*) 12.5 mg PO ONCE ONE Stop: 01/17/18 08:30 Nicotine (Nicotine Patch 14 Mg/24 Hr*) 1 patch TRANSDERM DAILY [facility] Last Admin: 01/17/18 08:04 Dose: 1 patch Nicotine (Nicotine Inhaler*) 10 mg INH Q2H PRN PRN Reason: CRAVING Nitroglycerin (Nitroglycerin Tab 0.4 Mg*) 0.4 mg SL Q5M PRN PRN Reason: ANGINA Ondansetron HCl (Zofran Inj*) 4 mg IV Q4H PRN PRN Reason: NAUSEA/VOMITING Oxycodone/Acetaminophen (Percocet 5/325 Tab*) 1 tab PO Q4H PRN PRN Reason: Pain Last Admin: 01/16/18 20:16 Dose: 1 tab Pharmacy Profile Note (Nicotine Patch Removal Note*) 1 note FOLLOW UP 2100 [facility] Last Admin: 01/16/18 20:17 Dose: 1 note Senna (Senokot Tab*) 1 tab PO BID PRN PRN Reason: CONSTIPATION Ticagrelor (Brilinta*) 90 mg PO BID [facility] Last Admin: 01/17/18 08:03 Dose: 90 mg Objective Vital Signs: Temp Pulse Resp BP Pulse Ox 98.3 F 55 16 108/68 99 01/17/18 07:14 01/17/18 07:14 01/17/18 07:14 01/17/18 07:14 01/17/18 07:14 Oxygen Devices in Use Now: None Appearance: nad, pleasant Ears/Nose/Mouth/Throat: Clear Oropharnyx, Mucous Membranes Moist Neck: NL Appearance and Movements; NL JVP Respiratory: Symmetrical Chest Expansion and Respiratory Effort, Clear to Auscultation Cardiovascular: RRR, - - soft systolic murmur, no edema Abdominal: NL Sounds; No Tenderness; No Distention Extremities: No Edema, No Clubbing, Cyanosis, - Skin: No Rash or Ulcers Neurological: Alert and Oriented x 3 Laboratory Results: 01/16/18 04:46 01/17/18 04:56 APTT 37.0 seconds (26.0-36.3) H 01/15/18 11:47 B-Natriuretic Peptide 46 pg/mL (<=100) 01/15/18 01:11 Triglycerides 173 mg/dL 01/15/18 05:19 Cholesterol 259 mg/dL 01/15/18 05:19 LDL Cholesterol 183 mg/dL 01/15/18 05:19 HDL Cholesterol 41.5 mg/dL 01/15/18 05:19 TSH 1.11 mcIU/mL (0.34-5.60) 01/15/18 01:11 01/15/18 01/15/18 01/15/18 01:11 05:19 09:30 Troponin I 2.40 H* 4.55 H* 4.51 H* 01/15/18 01/15/18 11:47 16:53 Troponin I 4.40 H* 4.37 H* Diagnostic Imaging: Echo 01/15/2018: LVEF 35% with mid LAD territory WMA and mild EKG Data: EKG 01/15/2018: SB 55 bpm, non-specific st changes, repeat ekg grossly unchanged at 49 bpm EKG this AM shows SB 52 bpm, recent anterior wall [place] Assessment/Plan In summary, Jass Cunningham is 57 year old woman with a history of intermittent palpitations (? atrial fibrillation) in part related to extremely high caffeine intake, asymptomatic sinus bradycardia, tobacco use, dyslipidemia admitted with NSTEMI, LVEF 35-40% with mid LAD territory WMA s/p ALEX to mid LAD culprit lesion complicated by loss of septal branch, s/p ALEX to mid dominant Lcx has residual obstructive small vessel disease to be treated medically at this point - Continue atorvastatin 80 mg po daily. Pending repeat LDL measurements as an outpatient, patient would be eligible for add-on zetia and/or pcsk9 inhibitor - Increase toprol from 12.5 to 25 mg po daily (ordered), hold for HR < 45 bpm if asymptomatic - Continue aspirin 81 mg po daily - Continue brillinta 90 mg po bid - Continue losartan 25 mg po daily. Needs a BMP in 1 week - Smoking cessation counseling given, continue nicotine patch - Caffeine reduction counseled on - If no further arrhythmias can be discharged later in day tomorrow (01/18) - Will arrange cardiology follow up Thank you for allowing me to participate in the cardiovascular care of this patient. Please do not hesitate to contact me with questions or concerns.
[2018-01-17] MEDS: oxyCODONE/Acetamin 5/325 MG* TAB PO PRN ×2 (09:38→19:56)
--- NOTE | 2018-01-17 16:04 | PN ---
Subjective Date of Service: 01/17/18 Interval History: Patient seen and examined. States he is feeling well. Denies chest pain, no SOB , no n/v, no fevers or chills. States he is ambulating without difficulty. Objective Active Medications: Acetaminophen (Tylenol Tab*) 650 mg PO Q4H PRN PRN Reason: FEVER/PAIN Last Admin: 01/16/18 14:25 Dose: 650 mg Al Hydrox/Mg Hydrox/Simethicone (Maalox Plus*) 30 ml PO Q6H PRN PRN Reason: INDIGESTION Aspirin (Aspirin 81 Mg Chew Tab*) 81 mg PO DAILY [facility] Last Admin: 01/17/18 08:03 Dose: 81 mg Atorvastatin Calcium (Lipitor*) 80 mg PO 1700 [facility] Last Admin: 01/16/18 17:01 Dose: 80 mg Device (Nicotine Mouth Piece*) 1 each INH .USE WITH NICOTROL PRN PRN Reason: CRAVING Diazepam (Valium Tab(*)) 5 mg PO Q8H PRN PRN Reason: spasm Docusate Sodium (Colace Cap*) 100 mg PO BID PRN PRN Reason: CONSTIPATION Losartan Potassium (Cozaar Tab*) 25 mg PO DAILY [facility] Last Admin: 01/17/18 08:03 Dose: 25 mg Metoprolol Succinate (Toprol Xl Tab*) 25 mg PO DAILY [facility] Nicotine (Nicotine Patch 14 Mg/24 Hr*) 1 patch TRANSDERM DAILY [facility] Last Admin: 01/17/18 08:04 Dose: 1 patch Nicotine (Nicotine Inhaler*) 10 mg INH Q2H PRN PRN Reason: CRAVING Nitroglycerin (Nitroglycerin Tab 0.4 Mg*) 0.4 mg SL Q5M PRN PRN Reason: ANGINA Ondansetron HCl (Zofran Inj*) 4 mg IV Q4H PRN PRN Reason: NAUSEA/VOMITING Oxycodone/Acetaminophen (Percocet 5/325 Tab*) 1 tab PO Q4H PRN PRN Reason: Pain Last Admin: 01/17/18 09:38 Dose: 1 tab Pharmacy Profile Note (Nicotine Patch Removal Note*) 1 note FOLLOW UP 2100 [facility] Last Admin: 01/16/18 20:17 Dose: 1 note Senna (Senokot Tab*) 1 tab PO BID PRN PRN Reason: CONSTIPATION Ticagrelor (Brilinta*) 90 mg PO BID [facility] Last Admin: 01/17/18 08:03 Dose: 90 mg Vital Signs - 8 hr 01/17/18 01/17/18 01/17/18 09:38 11:14 11:27 Temperature 97.4 F Pulse Rate 57 Respiratory 18 16 18 Rate Blood Pressure 124/75 (mmHg) O2 Sat by Pulse 98 Oximetry 01/17/18 15:13 Temperature 97.7 F Pulse Rate 58 Respiratory 18 Rate Blood Pressure 128/71 (mmHg) O2 Sat by Pulse 98 Oximetry Oxygen Devices in Use Now: None Appearance: alert, NAD Eyes: No Scleral Icterus, PERRLA Ears/Nose/Mouth/Throat: NL Teeth, Lips, Gums, Mucous Membranes Moist Neck: NL Appearance and Movements; NL JVP, Trachea Midline Respiratory: Symmetrical Chest Expansion and Respiratory Effort, Clear to Auscultation Cardiovascular: NL Sounds; No Murmurs; No JVD, No Edema Abdominal: NL Sounds; No Tenderness; No Distention Extremities: No Edema, No Clubbing, Cyanosis Skin: No Rash or Ulcers Neurological: Alert and Oriented x 3 Nutrition: Taking PO's Result Diagrams: 01/16/18 04:46 01/17/18 04:56 Assess/Plan/Problems-Billing Assessment: Mr. Cunningham is a 57 yo male who was admitted on 01/14/18 with chest pain found to have NSTEMI, now s/p stent placement. - Patient Problems (1) NSTEMI (non-ST elevated myocardial infarction) Code(s): I21.4 - NON-ST ELEVATION (NSTEMI) MYOCARDIAL INFARCTION SNOMED Code(s ): 921710693 Comment: - S/p cardiac cath with stent placement to LAD and circ. - 1 episode or reperfusion arrhythmmia noted, tele with no aberrant conduction but is showing new ST depression in lateral leads, cardiology aware. - Continue aspirin, atorvastatin, and brilinta (2) Smoking Code(s): F17.200 - NICOTINE DEPENDENCE, UNSPECIFIED, UNCOMPLICATED SNOMED Code (s): 16178998 Comment: - Nicotine replacement available prn (3) DVT prophylaxis Code(s): PCN8368 - SNOMED Code(s): 390482255 Comment: - SCDs (4) Full code status Code(s): Z78.9 - OTHER SPECIFIED HEALTH STATUS SNOMED Code(s): 234277807 Comment: Status and Disposition: Inpatient. Per cardiology, likely DC tomorrow with close outpatient follow up.
[2018-01-17] MEDS: Atorvastatin* 80 MG TAB PO SCH (16:47)
[2018-01-17] MEDS: Nicotine Patch Removal NOTE FOLLOW UP SCH (19:57)
[2018-01-18] MEDS: Aspirin 81 mg CHEW TAB* 81 MG TAB.CHEW PO SCH (07:52)
[2018-01-18] MEDS: Nicotine PATCH 14 MG/24 HR* PATCH TRANSDERM SCH (07:52)
[2018-01-18] MEDS: Ticagrelor* 90 MG TAB PO SCH (07:52)
[2018-01-18] MEDS: Losartan TAB* 25 MG PO SCH (07:52)
[2018-01-18] MEDS ORDERED: Metoprolol Succinate XL TAB* 25 MG PO SCH (09:00)
[2018-01-18] MEDS: oxyCODONE/Acetamin 5/325 MG* TAB PO PRN (10:12)
--- NOTE | 2018-01-18 10:14 | PN ---
Subjective Date of Service: 01/18/18 Interval History: f/u NSTEMI, PCI Patient denies chest pain, dyspnea or palpitations tele SB/SR, no arrhythmias Medications Active Medications: Acetaminophen (Tylenol Tab*) 650 mg PO Q4H PRN PRN Reason: FEVER/PAIN Last Admin: 01/16/18 14:25 Dose: 650 mg Al Hydrox/Mg Hydrox/Simethicone (Maalox Plus*) 30 ml PO Q6H PRN PRN Reason: INDIGESTION Aspirin (Aspirin 81 Mg Chew Tab*) 81 mg PO DAILY [facility] Last Admin: 01/18/18 07:52 Dose: 81 mg Atorvastatin Calcium (Lipitor*) 80 mg PO 1700 [facility] Last Admin: 01/17/18 16:47 Dose: 80 mg Device (Nicotine Mouth Piece*) 1 each INH .USE WITH NICOTROL PRN PRN Reason: CRAVING Diazepam (Valium Tab(*)) 5 mg PO Q8H PRN PRN Reason: spasm Docusate Sodium (Colace Cap*) 100 mg PO BID PRN PRN Reason: CONSTIPATION Losartan Potassium (Cozaar Tab*) 25 mg PO DAILY [facility] Last Admin: 01/18/18 07:52 Dose: 25 mg Metoprolol Succinate (Toprol Xl Tab*) 25 mg PO DAILY [facility] Last Admin: 01/18/18 07:52 Dose: 25 mg Nicotine (Nicotine Patch 14 Mg/24 Hr*) 1 patch TRANSDERM DAILY [facility] Last Admin: 01/18/18 07:52 Dose: 1 patch Nicotine (Nicotine Inhaler*) 10 mg INH Q2H PRN PRN Reason: CRAVING Nitroglycerin (Nitroglycerin Tab 0.4 Mg*) 0.4 mg SL Q5M PRN PRN Reason: ANGINA Ondansetron HCl (Zofran Inj*) 4 mg IV Q4H PRN PRN Reason: NAUSEA/VOMITING Oxycodone/Acetaminophen (Percocet 5/325 Tab*) 1 tab PO Q4H PRN PRN Reason: Pain Last Admin: 01/17/18 19:56 Dose: 1 tab Pharmacy Profile Note (Nicotine Patch Removal Note*) 1 note FOLLOW UP 2100 [facility] Last Admin: 01/17/18 19:57 Dose: 1 note Senna (Senokot Tab*) 1 tab PO BID PRN PRN Reason: CONSTIPATION Ticagrelor (Brilinta*) 90 mg PO BID [facility] Last Admin: 01/18/18 07:52 Dose: 90 mg Objective Vital Signs: Temp Pulse Resp BP Pulse Ox 98.0 F 51 16 111/71 99 01/18/18 07:48 01/18/18 07:48 01/18/18 07:48 01/18/18 07:48 01/18/18 07:48 Oxygen Devices in Use Now: None Appearance: nad, pleasant Ears/Nose/Mouth/Throat: Clear Oropharnyx, Mucous Membranes Moist Neck: NL Appearance and Movements; NL JVP Respiratory: Symmetrical Chest Expansion and Respiratory Effort, Clear to Auscultation Cardiovascular: RRR, - - soft systolic murmur, no edema Abdominal: NL Sounds; No Tenderness; No Distention Extremities: No Edema, No Clubbing, Cyanosis, - Skin: No Rash or Ulcers Neurological: Alert and Oriented x 3 Laboratory Results: 01/16/18 04:46 01/17/18 04:56 APTT 37.0 seconds (26.0-36.3) H 01/15/18 11:47 B-Natriuretic Peptide 46 pg/mL (<=100) 01/15/18 01:11 Triglycerides 173 mg/dL 01/15/18 05:19 Cholesterol 259 mg/dL 01/15/18 05:19 LDL Cholesterol 183 mg/dL 01/15/18 05:19 HDL Cholesterol 41.5 mg/dL 01/15/18 05:19 TSH 1.11 mcIU/mL (0.34-5.60) 01/15/18 01:11 01/15/18 01/15/18 01/15/18 01:11 05:19 09:30 Troponin I 2.40 H* 4.55 H* 4.51 H* 01/15/18 01/15/18 11:47 16:53 Troponin I 4.40 H* 4.37 H* 01/17: [id number] 5.3 Diagnostic Imaging: Echo 01/15/2018: LVEF 35% with mid LAD territory WMA and mild EKG Data: EKG 01/15/2018: SB 55 bpm, non-specific st changes, repeat ekg grossly unchanged at 49 bpm EKG this AM shows SB 47 bpm, recent anterior wall [place] Assessment/Plan In summary, Jass Cunningham is 57 year old woman with a history of intermittent palpitations (? atrial fibrillation) in part related to extremely high caffeine intake, asymptomatic sinus bradycardia, tobacco use, dyslipidemia admitted with NSTEMI, LVEF 35-40% with mid LAD territory WMA s/p ALEX to mid LAD culprit lesion complicated by loss of septal branch, s/p ALEX to mid dominant Lcx has residual obstructive small vessel disease to be treated medically at this point - Continue atorvastatin 80 mg po daily. Pending repeat LDL measurements as an outpatient, patient would be eligible for add-on zetia and/or pcsk9 inhibitor - Continue toprol 25 mg po daily, hold for HR < 45 bpm if asymptomatic - Continue aspirin 81 mg po daily - Continue brillinta 90 mg po bid - Continue losartan 25 mg po daily. Needs a BMP in 1 week - Smoking cessation counseling given, continue nicotine patch - Caffeine reduction counseled on - Can be discharged later today - Patient prefers [facility] Cardiology f/u at [place], will try to arrange with Dr. Blas Thank you for allowing me to participate in the cardiovascular care of this patient. Please do not hesitate to contact me with questions or concerns.
[2018-01-18 11:31] VITALS: BP 122/65
--- NOTE | 2018-01-19 08:24 | DS ---
CC: Erwin Romeo DO; Jose Blas MD * DISCHARGE SUMMARY: DATE OF ADMISSION: 01/15/18 DATE OF DISCHARGE: 01/18/18 ATTENDING FOR ADMISSION/ATTENDING FOR TODAY: Toby Mota MD * (DICTATED BY CHAVEZ DE LEON NP) HOSPITAL COURSE: This is a pleasant 57-year-old male patient, who presented to the emergency department at [facility] on the evening of 01/14/18. The patient states he was out hunting and then came home in the evening and was On the couch when he developed some substernal chest pain radiating into the shoulder. The patient does report a history of having chronic back pain. He was associating these radiating pains with his chronic back pain; however, he noted no improvement and then felt like his heart was racing. He had taken Percocet and metoprolol, which he had at home and again with no relief. He went to the emergency department for evaluation. The patient reported some dietary indiscretion in the form of large amounts of caffeine conception. The patient stated he drinks between 15 and 20 pots of coffee per day and a 24 pack of caffeinated soda. The patient was found to have positive troponins at [place] and was transferred to [facility] for further evaluation. At that time, it was determined the patient may likely have had change in heart rate or arrhythmia. Cardiology was consulted. His troponins were trended. He was placed on a heparin drip. Statin and beta blockers were held. The patient' s troponins continued to rise after coming to [facility]. Initially, it was 2.40, 4.55 , 4.51, 4.40, and 4.37 on the . The patient was seen by Dr. Erwin Romeo of Cardiology. At that time, it was recommended that the patient should undergo cardiac catheterization after reviewing his echo study and evaluating the rest of his labs and history. The patient underwent cardiac catheterization on the , he did receive PCI intervention. At that time, it was noted that the patient had ischemia in the LAD and also in the circumflex. The patient received stenting to the mid LAD of the culprit lesion and also mid dominant left circumflex, which had residual obstructive small vessel disease, which would be optimized medically. The patient was continued on metoprolol, high dose statin, aspirin, started on Brilinta and losartan. The patient was counseled on smoking cessation and caffeine reduction. The patient did have one re-perfusion arrhythmia immediately after his anterior wall NJ; however, he showed no further arrhythmias after that initial change. The patient was cleared by Cardiology for discharge on 01/18/18. The patient was discharged to home with his new medications and instructed on followup and lifestyle changes. DISCHARGE DIAGNOSES: 1. Myocardial infarction status post PCI. 2. Brief episode of nonsustained ventricular tachycardia. 3. Tobacco abuse. 4. Excessive caffeine intake. 5. Hypertension. 6. Hyperlipidemia. DISCHARGE MEDICATIONS: Include: 1. Aspirin 81 mg daily. 2. Brilinta 90 mg p.o. b.i.d. 3. Nitroglycerin 0.4 mg q.5 minutes as needed. 4. Metoprolol succinate XL 25 mg daily. 5. Losartan 25 mg daily. 6. Atorvastatin 80 mg p.o. daily. DISPOSITION: The patient was discharged to home in stable condition. I had a very detailed discussion with the patient regarding his new medications, follow- ups, and lifestyle changes. FOLLOWUP: The patient is instructed to follow up with Dr. Blas at his [place] office. This will be arranged by Dr. Romeo. The patient states he was seeing Dr. Darrius Rodriguez. He was told to go and see Dr. Rodriguez if he wanted to continue to see him for primary care. It was initially listed on his chart that the patient had no primary care physician. We offered to see him also with the [facility] and provided followup information for that. DIET: Low fat, low cholesterol, low sodium as tolerated. ACTIVITY: No strenuous activity until followup with Cardiology and PCP is established. The patient was discharged in stable condition to the care of family. All questions were answered. CHAVEZ DE LEON NP [id number]/[facility] #: [id number] KENNETH
--- NOTE | 2018-01-20 08:47 | CATH ---
CC: Erwin Romeo DO; Darrius Rodriguez DO CARDIAC CATHETERIZATION REPORT: DATE OF PROCEDURE: 01/15/18 INDICATION FOR THE PROCEDURE: The patient presents with acute coronary syndrome /non-STEMI, assessed for the presence of significant coronary artery disease. PROCEDURE: Coronary arteriography, balloon angioplasty and placement of a 3.0 x 24 mm long Synergy drug-eluting stent in the proximal to mid LAD as well as primary stenting of the mid circumflex with a 3.0 x 20 mm long Synergy drug- eluting stent. APPROACH: The right radial artery was assessed under ultrasound and found to be acceptable for an approach and as such, it was chosen for the approach. CONSENT: The patient was interviewed and examined on the floor of the hospital where the risks and benefits were explained. He understood them and wished to proceed. EQUIPMENT UTILIZED: 1. Right radial artery sheath - 6-Honduran Glidesheath. 2. Diagnostic coronary catheter, a 5-Honduran TIG4 curve catheter. 3. The diagnostic guidewire, a 260 length Novoa curved guidewire. 4. The guide catheter was a 6-Honduran VL 3.5 curve guide catheter. 5. The interventional wire was a BMW regular length interventional wire. 6. Initial balloon angioplasty catheter - a 2.5 x 20 mm long NC Emerge balloon. 7. Stents utilized - a 3.0 x 24 mm Synergy drug-eluting stent in the proximal to mid LAD, a 3.0 x 20 mm long Synergy drug-eluting stent in the mid circumflex. 8. Post stent deployment balloon inflation catheters - a 3.0 x 15 mm NC Emerge balloon and a 3.0 x 12 mm long NC Emerge balloon. 9. Closure device - a right radial band regular size. MEDICATIONS GIVEN DURING THE PROCEDURE: The patient already received aspirin and Brilinta prior to coming to the blood bank laboratory professional. The patient was on a heparin drip on arrival in the blood bank laboratory professional. Extra bolus of 3000 units of heparin followed by 2000 units of heparin was given monitoring ACT's. A total of 50 mcg of fentanyl was given intravenously. RESULTS: CORONARY ARTERIOGRAPHY: A. Right coronary artery: A non-dominant vessel supplying several acute marginal branches to the right ventricle. The second to last right ventricular branch was a somewhat long vessel with diffuse disease, small in caliber with a 75-80% mid lesion in it. It clearly was not of a caliber for intervention. B. Left coronary artery: 1. Left main - widely patent with minimal tapering of the distal vessel of 10%. 2. Left anterior descending artery - the proximal portion of the left anterior descending artery had a 55-60% segment leading to a critical mid segment which had an 80-85% narrowing encompassing the second diagonal branch which was extremely small in caliber and had a totally occluded medial branch. The continuation of the LAD tapered in its distal vessel to a small caliber vessel. The first diagonal branch was extremely small in caliber and had an 85- 90% obstruction proximally. It was not felt to be a vessel that could be intervened on. 3. Circumflex artery - a dominant vessel supplying a moderate size first obtuse marginal branch followed by thin second and third obtuse marginal branches. A critical 85-90% stenosis seen just before turning onto the inferior surface of the heart. Past that point, it supplied another low-lying posterior left ventricular branch followed by a bifurcating PDA. There was diffuse disease leading up to the bifurcation with area of stenosis as much as 75%. The caliber of the vessel was clearly small in nature, barely 2 mm. INTERVENTION INTO LEFT ANTERIOR DESCENDING ARTERY: Successful reduction of critically stenosed mid segment of left anterior descending artery with balloon angioplasty and stent placement with reduction of 85% lesion with DARCI-3 flow. No dissection seen. Of note, there was loss of a mid septal egg packer after stent deployment. The patient was stable in the blood bank laboratory professional with no significant symptomatology at that time. INTERVENTION INTO MID CIRCUMFLEX ARTERY: Successful intervention into mid circumflex with primary stenting utilizing the 3.0 x 20 mm long Synergy drug-eluting stent reducing a 90% stenosis to 0% DARIC-3 flow. No dissection seen. OVERALL ASSESSMENT: Successful two-vessel intervention into mid LAD and mid circumflex as described above with loss of mid septal egg packer. He appears to be hemodynamically stable and without significant symptoms. At this point in time , we will medically manage him for his other disease. He will follow up with primary airplane dispatch clerk, Dr. Erwin Romeo, who will be involved in his care throughout the rest of the hospitalization. Aggressive risk factor management with aggressive control of cholesterol and high dose statin therapy in addition to smoking cessation in addition to dual antiplatelet therapy for 1 year's time is recommended. [id number]/[facility] #: [id number] [facility]
== END 2018-01-18 13:30 | disposition home or self-care (01) | DRG 174 ==
LOC: ED 00:21 → MEDTELE 02:23 → ICU 16:29 → MEDTELE 01-16 20:06
PROVIDERS: ADMIT Pediatrics; ATTEND Internal Medicine
PROC: B2111ZZ Fluoroscopy of Multiple Coronary Arteries using Low Osmolar Contrast (ICD-10-PCS; 2018-01-15)
PROC: 02713EZ Dilation of Coronary Artery, Two Arteries with Two Intraluminal Devices, Percutaneous Approach (ICD-10-PCS; principal; 2018-01-15 14:15)
DX: I21.4 Non-ST elevation (NSTEMI) myocardial infarction (principal); I47.2 Ventricular tachycardia; E78.5 Hyperlipidemia, unspecified; M19.90 Unspecified osteoarthritis, unspecified site; M54.9 Dorsalgia, unspecified; F17.210 Nicotine dependence, cigarettes, uncomplicated; G89.29 Other chronic pain; I24.9 Acute ischemic heart disease, unspecified; I10 Essential (primary) hypertension; F15.90 Other stimulant use, unspecified, uncomplicated; Z82.49 Family history of ischemic heart disease and other diseases of the circulatory system; Z79.02 Long term (current) use of antithrombotics/antiplatelets; Z79.82 Long term (current) use of aspirin
CPT/HCPCS: 36415; 76937; 80048; 80061; 82565; 83036; 83735; 83880; 84132; 84443; 84484; 84520; 85025; 85347; 85730; 93005; 93306; 93454; 99284; A9270-GY; C1725; C1769; C1876; C9600-LD; C9601-LC; J1644; J2250; J3010; J3490